=== PATIENT | female | born 1995 | race Caucasian/White ===

== ENCOUNTER → 2017-03-11 | Outpatient (REF) | payer BC | LOC: M LABDRAW1 15:50 | PROVIDERS: ATTEND Physician Assistant Medical | DX: G40.909 Epilepsy, unspecified, not intractable, without status epilepticus (principal) ==

== ENCOUNTER → 2017-04-07 | Outpatient (REF) | payer BC ==
[2017-04-07 15:38] LABS: MEAN CORPUSCULAR HEMOGLOBIN 32.7 pg (27.0-33.0); MEAN CORPUSCULAR HGB CONC 33.4 g/dl (32.0-36.5); RED CELL DISTRIBUTION WIDTH 11.7 % (11.5-14.5); WHITE BLOOD COUNT 6.5 K/mm3 (4.0-10.0)
[2017-04-07 16:30] LABS: ALBUMIN 3.6 GM/DL (3.2-5.2); ALBUMIN/GLOBULIN RATIO 1.03 (1.00-1.93); ALKALINE PHOSPHATASE 67 U/L (45-117); ALT/SGPT 23 U/L (12-78); ANION GAP 7 MEQ/L (8-16); AST/SGOT 20 U/L (15-37); BILIRUBIN,TOTAL 0.4 MG/DL (0.2-1.0); BLOOD UREA NITROGEN 10 MG/DL (7-18); CARBON DIOXIDE LEVEL 28 MEQ/L (21-32); CHLORIDE LEVEL 105 MEQ/L (98-107); CREATININE FOR GFR 0.67 MG/DL (0.55-1.02); GLUCOSE, FASTING 77 MG/DL (70-105); POTASSIUM SERUM 4.5 MEQ/L (3.5-5.1); SODIUM LEVEL 140 MEQ/L (136-145); TOTAL PROTEIN 7.1 GM/DL (6.4-8.2)
== END ==
LOC: M SFHCPLAZ 10:12 → M LABDRAW1 10:12
PROVIDERS: ATTEND Nurse Practitioner Adult Health
DX: Z00.00 Encounter for general adult medical examination without abnormal findings (principal)

== ENCOUNTER → 2017-07-08 | Outpatient (REF) | payer BC ==
[~2017-07-08] MED LIST: ALBU17IN; CETI10TA; DIVA500T9; KEPP10002 PO; LEVE500T64; LORA1TAB12; SYMBICORT
[2017-07-08 19:13] LABS: BASO % 0.5 % (0.0-1.0); EOS # 0.3 K/mm3 (0.0-0.50); EOS % 5.8 % (0.0-3.0); LARGE UNSTAINED CELL # 0.1 K/mm3 (0.0-0.4); LARGE UNSTAINED CELL % 2.2 % (0.0-4.0); LYMPH # 1.8 K/mm3 (1.5-6.5); LYMPH % 37.9 % (24.0-44.0); MEAN CORPUSCULAR HEMOGLOBIN 33.2 pg (27.0-33.0); MEAN CORPUSCULAR HGB CONC 34.6 g/dl (32.0-36.5); MEAN CORPUSCULAR VOLUME 95.9 fl (80.0-96.0); MONO # 0.3 K/mm3 (0.0-0.8); MONO % 5.6 % (0.0-5.0); NEUTROPHILS # 2.2 K/mm3 (1.8-7.7); PLATELET COUNT, AUTOMATED 247 k/mm3 (150-450); RED CELL DISTRIBUTION WIDTH 11.7 % (11.5-14.5); WHITE BLOOD COUNT 4.6 K/mm3 (4.0-10.0)
== END ==
LOC: M LABDRAW1 16:53
PROVIDERS: ATTEND Physician Assistant Medical
DX: Z51.81 Encounter for therapeutic drug level monitoring (principal); Z79.899 Other long term (current) drug therapy; G40.909 Epilepsy, unspecified, not intractable, without status epilepticus

== ENCOUNTER 2017-07-10 19:13 | Emergency (ER) | payer BC ==
[~2017-07-10] VITALS: Ht 157.5 cm; Wt 80.9 kg
[2017-07-10] MEDS ORDERED: CETI10TA (19:31)
[2017-07-10] MEDS ORDERED: DIVA500T9 (19:31)
[2017-07-10] MEDS ORDERED: LEVE500T64 (19:31)
[2017-07-10] MEDS ORDERED: ALBU17IN (19:31)
[2017-07-10] MEDS ORDERED: LORA1TAB12 (19:31)
[2017-07-10] MEDS ORDERED: SYMBICORT (19:31)
[2017-07-10] MEDS ORDERED: ACETAMINOPHEN TAB 650MG DOSE (2X325MG) PO ONE (20:15)
[2017-07-10] MEDS ORDERED: KETOROLAC 30 MG/ML VIAL (J1885) IV ONE (20:15)
[2017-07-10] MEDS ORDERED: diphenhydrAMINE INJ 50MG/ML VIAL (J1200) IV ONE ×2 (20:15→23:00)
[2017-07-10] MEDS ORDERED: NS 1,000 ML IV ONE (20:15)
[2017-07-10 21:57] LABS: BASO % 0.3 % (0.0-1.0); EOS # 0.1 K/mm3 (0.0-0.50); LARGE UNSTAINED CELL % 0.6 % (0.0-4.0); LYMPH # 0.3 K/mm3 (1.5-6.5); MEAN CORPUSCULAR HGB CONC 35.4 g/dl (32.0-36.5); MEAN CORPUSCULAR VOLUME 93.2 fl (80.0-96.0); MONO # 0.2 K/mm3 (0.0-0.8); MONO % 2.3 % (0.0-5.0); NEUTROPHILS # 6.6 K/mm3 (1.8-7.7); NEUTROPHILS % 91.8 % (36.0-66.0); PLATELET COUNT, AUTOMATED 171 k/mm3 (150-450); RED CELL DISTRIBUTION WIDTH 11.8 % (11.5-14.5); WHITE BLOOD COUNT 7.2 K/mm3 (4.0-10.0)
[2017-07-10 22:31] LABS: ALBUMIN 3.9 GM/DL (3.2-5.2); ALBUMIN/GLOBULIN RATIO 1.03 (1.00-1.93); ALKALINE PHOSPHATASE 68 U/L (45-117); ALT/SGPT 25 U/L (12-78); ANION GAP 10 MEQ/L (8-16); AST/SGOT 22 U/L (15-37); BILIRUBIN,DIRECT 0.2 MG/DL (0.0-0.2); BILIRUBIN,TOTAL 0.4 MG/DL (0.2-1.0); BLOOD UREA NITROGEN 9 MG/DL (7-18); CALCIUM LEVEL 8.8 MG/DL (8.5-10.1); CARBON DIOXIDE LEVEL 26 MEQ/L (21-32); CHLORIDE LEVEL 102 MEQ/L (98-107); CREATININE FOR GFR 1.04 MG/DL (0.55-1.02); GLUCOSE, FASTING 97 MG/DL (70-105); POTASSIUM SERUM 3.9 MEQ/L (3.5-5.1); SODIUM LEVEL 138 MEQ/L (136-145); TOTAL PROTEIN 7.7 GM/DL (6.4-8.2)
[2017-07-10 22:35] LABS: CONTROL LINE HCG INT CTR LINE PRESENT
[2017-07-10] MEDS ORDERED: MORPHINE 2 MG/ML 1ML SYRINGE IV ONE (23:00)
[2017-07-10] MEDS ORDERED: levETIRAcetam 250MG TABLET (KEPPRA) PO ONE (23:45)
[2017-07-11] MEDS ORDERED: ONDANSETRON 4MG/2ML VIAL (J2405) IV ONE (01:00)
[2017-07-11] MEDS ORDERED: MORPHINE 4 MG/ML 1ML SYRINGE IV PRN (01:00)
[2017-07-11] MEDS ORDERED: KEPP10002 PO (01:13)
[2017-07-11] MEDS ORDERED: levETIRAcetam 250MG TABLET (KEPPRA) PO ONE (01:15)
[2017-07-11 03:16] VITALS: BP 105/56
--- NOTE | 2017-07-11 03:46 | REP ---
Clinical: Systemic inflammatory response syndrome . Comparison: 08/04/2006 . Findings: The mediastinum and cardiac silhouette are stable and within normal limits for portable technique. The lung cook are clear without acute consolidation, effusion, or pneumothorax. Skeletal structures are intact. Impression: No acute cardiopulmonary process appreciated. Signed by Tyree Villanueva MD 07/11/2017 03:38 A
[2017-07-13 00:06] LABS: RUBELLA IgG FOR TORCH EVAL 1.19 index (Immune >0.99)
== END 2017-07-11 03:22 | disposition short-term general hospital (02) ==
LOC: M ED 19:13
DX: L51.8 Other erythema multiforme (principal); Z79.51 Long term (current) use of inhaled steroids; Z79.899 Other long term (current) drug therapy; Z88.2 Allergy status to sulfonamides
CPT/HCPCS: 71010; 80048; 80076; 80164; 80180; 83605; 84703; 85025; 86762; 86765; 86787; 87040; 87252; 87486; 87581; 87633; 87798; 87880; 93041; 94760; 96374; 96375; 99285; J1200; J1885; J2405

== ENCOUNTER → 2017-12-11 | Outpatient (CLI) | payer BC, MEDICAID ==
[2017-12-14 08:07] LABS: LAMOTRIGINE (LAMICTAL) 3.3 ug/mL (2.0-20.0)
[2017-12-14 08:07] LABS: LEVETIRACETAM (KEPPRA) 17.8 ug/mL (10.0-40.0)
== END ==
LOC: M ADAMS 12:10
DX: Z51.81 Encounter for therapeutic drug level monitoring (principal); G40.B09 Juvenile myoclonic epilepsy, not intractable, without status epilepticus; Z79.899 Other long term (current) drug therapy

== ENCOUNTER → 2018-06-26 | Outpatient (REF) | payer BC, MEDICAID ==
[2018-06-30 00:06] LABS: LAMOTRIGINE (LAMICTAL) 4.9 ug/mL (2.0-20.0)
[2018-06-30 00:06] LABS: LEVETIRACETAM (KEPPRA) 40.9 ug/mL (10.0-40.0)
== END ==
LOC: M LABDRAW1 15:33
DX: G40.B09 Juvenile myoclonic epilepsy, not intractable, without status epilepticus (principal)

== ENCOUNTER → 2019-01-19 | Outpatient (CLI) | payer BC, MEDICAID ==
[~2019-01-19] MED LIST changes: -LEVE500T64; +LEVE500T88
== END ==
LOC: M SLEEP 08:07
DX: G40.B09 Juvenile myoclonic epilepsy, not intractable, without status epilepticus (principal)

== ENCOUNTER → 2019-09-22 | Outpatient (CLI) | payer BC, MEDICAID ==
--- NOTE | 2019-09-23 09:44 | REP ---
RIGHT SHOULDER, COMPLETE: 09/22/2019. CLINICAL HISTORY: Right shoulder pain. COMPARISON: Portable chest, 07/10/2017. FINDINGS: Three views show the AC and glenohumeral joints intact. There is no fracture of the clavicle, ribs, scapula, or humerus. No abnormal soft-tissue calcification. IMPRESSION: 1. Negative right shoulder series. Electronically Signed by Art Portillo MD 09/23/2019 10:21 A
== END ==
LOC: M ADAMS 16:18
PROVIDERS: ATTEND Physician Assistant
DX: M25.511 Pain in right shoulder (principal)

== ENCOUNTER → 2019-10-16 | Outpatient (REF) | payer BC ==
[2019-10-16 16:01] LABS: CHLAMYDIA DNA AMPLIFICATION NEGATIVE (NEGATIVE); GC DNA AMPLIFICATION NEGATIVE (NEGATIVE)
== END ==
LOC: M PLALAB 11:12
PROVIDERS: ATTEND Nurse Practitioner Family
DX: Z12.4 Encounter for screening for malignant neoplasm of cervix (principal); Z11.3 Encounter for screening for infections with a predominantly sexual mode of transmission
CPT/HCPCS: 87491; 87591; G0123

== ENCOUNTER → 2019-10-22 | Outpatient (REF) | payer BC | LOC: M SFHCWAGY 09:31 | PROVIDERS: ATTEND Obstetrics & Gynecology | DX: N90.7 Vulvar cyst (principal) ==

== ENCOUNTER → 2020-09-17 | Outpatient (CLI) | payer BC ==
[~2020-09-17] MED LIST changes: -LORA1TAB12; +LORA1TAB4
== END ==
LOC: M LAB 08:55
PROVIDERS: ATTEND Psychiatry & Neurology Neurology
DX: G40.B09 Juvenile myoclonic epilepsy, not intractable, without status epilepticus (principal)

== ENCOUNTER → 2021-04-28 | Outpatient (CLI) | payer OTHER ==
[2021-04-28 14:40] LABS: ALBUMIN 4.2 GM/DL (3.2-5.2); ALT/SGPT 40 U/L (12-78); BILIRUBIN,TOTAL 0.5 MG/DL (0.2-1.0); BLOOD UREA NITROGEN 9 MG/DL (7-18); CARBON DIOXIDE LEVEL 24 MEQ/L (21-32); CHLORIDE LEVEL 103 MEQ/L (98-107); CREATININE FOR GFR 0.66 MG/DL (0.55-1.30); GLOMERULAR FILTRATION RATE > 60.0 (>60); GLUCOSE, FASTING 84 MG/DL (70-100); POTASSIUM SERUM 4.5 MEQ/L (3.5-5.1); SODIUM LEVEL 135 MEQ/L (136-145)
[2021-04-30 20:34] LABS: LAMOTRIGINE (LAMICTAL) 6.3 ug/mL (2.0-20.0)
== END ==
LOC: M PLAIMG 11:25
PROVIDERS: ATTEND Nurse Practitioner Adult Health
DX: M25.562 Pain in left knee (principal)

== ENCOUNTER → 2022-02-11 | Outpatient (CLI) | payer OTHER | LOC: M WUC 13:31 | PROVIDERS: ATTEND Psychiatry & Neurology Clinical Neurophysiology | DX: G40.B09 Juvenile myoclonic epilepsy, not intractable, without status epilepticus (principal) ==

== ENCOUNTER 2023-09-20 21:47 | Emergency (ER) | payer OTHER ==
[~2023-09-20] VITALS: Ht 157.5 cm; Wt 75.0 kg
[~2023-09-20 21:47] MED LIST changes: +LORA1TAB23; -LORA1TAB4
[2023-09-20 22:15] LABS: VENOUS BASE EXCESS -1.1 (-2.0-2.0); VENOUS O2 SATURATION 71.8 % (60.0-80.0); VENOUS PARTIAL PRESSURE CO2 46.6 mmHg (38.0-50.0); VENOUS PARTIAL PRESSURE O2 38.9 mmHg (30.0-50.0); VENOUS PH 7.347 UNITS (7.330-7.430); VENOUS TOTAL CO2 26.4 MMOL/L (24.0-28.0)
[2023-09-20 22:16] LABS: IONIZED CALCIUM 4.7 MG/DL (4.5-5.3)
[2023-09-20 22:23] LABS: BASO # 0.1 10^3/uL (0.0-0.2); BASO % 0.8 % (0.0-1.0); EOS # 0.4 10^3/uL (0.0-0.5); EOS % 4.9 % (0.0-3.0); HEMATOCRIT 40.1 % (36.0-47.0); HEMOGLOBIN 13.6 g/dl (12.0-15.5); LYMPH # 1.7 10^3/uL (1.5-5.0); LYMPH % 22.4 % (24.0-44.0); MEAN CORPUSCULAR HEMOGLOBIN 31.7 pg (27.0-33.0); MEAN CORPUSCULAR HGB CONC 33.9 g/dl (32.0-36.5); MEAN CORPUSCULAR VOLUME 93.5 fl (80.0-96.0); MONO # 0.3 10^3/uL (0.0-0.8); MONO % 4.5 % (2.0-8.0); NEUTROPHILS # 4.9 10^3/uL (1.5-8.5); NEUTROPHILS % 67.1 % (36.0-66.0); PLATELET COUNT, AUTOMATED 341 10^3/uL (150-450); RED BLOOD COUNT 4.29 10^6/uL (4.00-5.40); WHITE BLOOD COUNT 7.4 10^3/uL (4.0-10.0)
[2023-09-20 22:47] LABS: ALBUMIN 3.6 G/DL (3.2-5.2); ALKALINE PHOSPHATASE 86 U/L (46-116); ALT/SGPT 52 U/L (7.0-40); AST/SGOT 28 U/L (<34); BILIRUBIN,DIRECT < 0.1 MG/DL (<0.4); BILIRUBIN,TOTAL 0.2 MG/DL (0.3-1.2); BLOOD UREA NITROGEN 9 MG/DL (9-23); CARBON DIOXIDE LEVEL 24 MMOL/L (20-31); CHLORIDE LEVEL 105 MMOL/L (98-107); CREATININE FOR GFR 0.59 MG/DL (0.55-1.30); GLOMERULAR FILTRATION RATE > 60.0 (>60); GLUCOSE, FASTING 102 MG/DL (60-100); MAGNESIUM LEVEL 2.1 MG/DL (1.8-2.4); PHOSPHORUS LEVEL 2.7 MG/DL (2.5-4.9); POTASSIUM SERUM 4.4 MMOL/L (3.5-5.1); SODIUM LEVEL 138 MMOL/L (136-145); TOTAL PROTEIN 7.1 G/DL (5.7-8.2)
[2023-09-20] MEDS ORDERED: LORazepam 2 MG/ML 1ML VIAL IV STA (23:12)
[2023-09-20] MEDS ORDERED: levETIRAcetam INJection 1,000 MG in D5W 100 ML IV ONE ×2 (23:15→23:35)
[2023-09-21 00:05] LABS: VALPROIC ACID (DEPAKOTE) < 3.0 UG/ML (50.0-100.0)
[2023-09-21 03:19] VITALS: BP 129/73; TEMP 98.8; O2SAT 98
== END 2023-09-21 03:24 | disposition home or self-care (01) ==
LOC: M ED 21:47 → EDBD 21:47 → M ED 09-21 03:24
DX: G40.909 Epilepsy, unspecified, not intractable, without status epilepticus (principal); Z91.148 Patient's other noncompliance with medication regimen for other reason; Z88.2 Allergy status to sulfonamides; Z79.52 Long term (current) use of systemic steroids; Z79.899 Other long term (current) drug therapy
CPT/HCPCS: 80048; 80076; 80164; 82140; 82330; 82803; 83605; 83735; 84100; 85025; 87486; 87581; 87633; 87798; 93041; 94760; 96365; 99285; J1953